=== PATIENT | female | born 1985 | race Caucasian/White ===

== ENCOUNTER 2019-12-06 08:28 | Emergency (ER) | payer OTHER ==
[2019-12-06 08:41] VITALS: BP 93/56; PULSE 63; TEMP 97.8; BMI 29.4
--- NOTE | 2019-12-06 09:06 | PDOC ---
History of Present Illness - General Chief Complaint: Back Pain Stated Complaint: BACK PAIN Time Seen by Provider: 12/06/19 08:41 History Source: Patient Exam Limitations: No Limitations - History of Present Illness Initial Comments: 12/06/19 09:01 Patient is a 34-year-old female who presents to the ED with complaint of low back pain that she has had for the last 2 days. She states she was having mild back pain while in [place] 3 days ago and then flew home. When she woke up yesterday her back pain was primarily in the low back and on the right side. She states it radiates down to the anterior aspect of her right thigh. She denies any urinary or fecal incontinence or retention. She denies any known injury. She was seen in urgent care center yesterday and given a Toradol injection and muscle relaxers. She states both muscle relaxer and anti- inflammatories have not been helping her. She states this happened to her 1 previous time in May. She has a history of childhood asthma and no allergies to medications. Past History - Past Medical History Allergies/Adverse Reactions: Allergies Allergy/AdvReac Type Severity Reaction Status Date / Time No Known Allergies Allergy Verified 12/06/19 08:30 Home Medications: Ambulatory Orders Cetirizine HCl [Zyrtec -] 10 mg PO DAILY 12/06/19 Methylprednisolone [Medrol Dose Mckinley] 4 mg PO ASDIR #21 tablet 12/06/19 Nabumetone 750 mg PO ASDIR 12/06/19 Tizanidine HCl 4 mg PO ASDIR 12/06/19 Tramadol HCl 50 mg PO TID PRN #9 tablet MDD 3 12/06/19 COPD: No Other medical history: sciatica - Psycho Social/Smoking Cessation Hx Smoking History: Never smoked Hx Alcohol Use: No Drug/Substance Use Hx: No Review of Systems - Review of Systems Comments:: 12/06/19 09:05 - Review of Systems Able to Perform ROS?: Yes Constitutional: No: Fever, Chills, Loss of Appetite, Night Sweats, Weakness HEENTM: No: Eye Pain, Vision changes, Ear Pain, Throat Pain, Throat Swelling, Mouth Pain, Difficulty Swallowing Respiratory: No: Cough, Shortness of Breath, Wheezing, Sputum Production Cardiac (ROS): No: Chest Pain, Chest Tightness, Palpitations, Irregular Heart Beat, Edema ABD/GI: No: Nausea, Vomiting, Abdominal Pain, Diarrhea : No Dysuria, No Hematuria, No Frequency, No Urgency, No Vaginal Discharge/ Pain Musculoskeletal: No: Muscle Pain, Joint Pain, Muscle Weakness, Neck Pain; positive: Lumbar, right lumbar back pain Integumentary: No: Lesions, Rash Neurological: No: Headache, Numbness, Tingling, Weakness, Speech Difficulties *Physical Exam - Vital Signs Last Vital Signs Temp Pulse Resp BP Pulse Ox 97.8 F 63 18 93/56 L 99 12/06/19 08:32 12/06/19 08:32 12/06/19 08:32 12/06/19 08:32 12/06/19 08:32 - Physical Exam 12/06/19 09:05 - Physical Exam General Appearance: Nourished, Appropriately Dressed, No Distress HEENT: EOMI, Normal Voice, No Muffled/Hoarse voice, No Nasal Congestion, No Rhinorrhea, Hearing Grossly Normal Neck: Supple, No Lymphadenopathy, No Rigidity, No Decreased range of motion Respiratory/Chest: Lungs Clear, Normal Breath Sounds. No Respiratory Distress, No Accessory Muscle Use Cardiovascular: Regular Rhythm, Regular Rate, S1, S2 Gastrointestinal/Abdominal: Normal Bowel Sounds, Soft. Non-tender, No Guarding , No Rebound, No Rigidity Musculoskeletal: Normal Inspection. No Decreased Range of Motion; no reproducible lumbar tenderness to palpation. No tenderness along the midline. No significant pain exacerbated with external rotation of the hip. Sensation intact to light touch to the bilateral lower extremities. Strength 5/5 bilateral lower extremities. No saddle anesthesia appreciated. Extremity: Normal Capillary Refill, Normal Inspection Integumentary: Normal Color, Dry. 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 Plan: -hCG -lumbar x-ray ordered -Patient's BP was initially moderately low at 93/57, recheck was 101/59. I have made the patient aware that with such low blood pressure is not advisable to give her a narcotic pain medication as this will lower her BP further. Will recheck shortly. 12/06/19 10:21 Patient's lumbar spine x-ray shows no acute pathology. There is normal lordosis of the lumbar spine and maintained disc height. There is no significant cheng-or retrolisthesis appreciated. No significant spondylosis appreciated. We will send a Medrol Dosepak to the patient's pharmacy as well as tramadol. She has been made aware that she should stop taking the anti- inflammatory that was given to her from the urgent care. She can continue to take the tizanidine but should take it only if not taking the tramadol as both medications can make her sleepy. She understands and agrees with this treatment plan and she is stable for discharge. Discharge - Discharge Information Problems reviewed: Yes Clinical Impression/Diagnosis: Low back pain Qualifiers: Chronicity: acute Back pain laterality: right Sciatica presence: with sciatica Sciatica laterality: sciatica of right side Qualified Code(s): M54.41 - Lumbago with sciatica, right side Condition: Stable Disposition: HOME - Additional Discharge Information Prescriptions: Methylprednisolone [Medrol Dose Mckinley] 4 mg PO ASDIR #21 tablet Tramadol HCl 50 mg PO TID PRN #9 tablet MDD 3 PRN Reason: Pain - Follow up/Referral Referrals: Angel Harding MD, [facility] [Staff Physician] - 1 week - Patient Discharge Instructions Patient Printed Discharge Instructions: DI for Back Pain With Sciatica Additional Instructions: Avoid any strenuous activity but try and move gently to keep your muscles warm. Alternate ice and heat to your low back to help with pain. Take the tramadol as needed for severe pain but do not take it with the muscle relaxer that was previously given to you. Both of those medications can make you very sleepy and lower your blood pressure. You can stop taking the anti-inflammatory given to you by the urgent care. Take the steroid as prescribed as this will help with the inflammatory process. Follow-up with your primary doctor or with neurosurgery, referral given, for further evaluation and treatment. - Post Discharge Activity
[2019-12-06] MEDS ORDERED: traMADol HCL 50 MG TABLET PO ONE (09:59)
[2019-12-06] MEDS ORDERED: traMADol HCL 50 MG TABLET ONE (10:04)
== END 2019-12-06 10:42 | disposition home or self-care (01) ==
LOC: JERFT 08:28
DX: M54.41 Lumbago with sciatica, right side (principal)
CPT/HCPCS: 72100-TC-FY; 84703; 99284-25

== ENCOUNTER 2024-08-11 21:42 | Emergency (ER) | payer BC, OTHER ==
[2024-08-11 21:53] VITALS: BMI 36.0
[2024-08-11] MEDS ORDERED: ALBUTEROL SO4 2.5/IPRATROPIUM 0.5 INH SOL 3 ML VIAL.NEB. NEB ONE ×2 (22:06→22:56)
[2024-08-11] MEDS: ALBUTEROL SO4 2.5/IPRATROPIUM 0.5 INH SOL 3 ML VIAL.NEB. NEB SCH (22:09)
[2024-08-11] MEDS ORDERED: ALBUTEROL SO4 HFA INHALER IH ONE (23:01)
[2024-08-11] MEDS: ALBUTEROL SO4 HFA INHALER IH ONE (23:13)
[2024-08-11 23:18] VITALS: BP 145/90; PULSE 96; RESP 20; TEMP 98
== END 2024-08-11 23:18 | disposition home or self-care (01) ==
LOC: JER 21:42
PROC: 3E0F7GC Introduction of Other Therapeutic Substance into Respiratory Tract, Via Natural or Artificial Opening (ICD-10-PCS; principal; 2024-08-11)
DX: R06.02 Shortness of breath (principal); J45.901 Unspecified asthma with (acute) exacerbation; R07.89 Other chest pain
CPT/HCPCS: 93005; 93010; 99283-25